=== PATIENT | male | born 1975 | race American Indian/Alaskan Native ===

== ENCOUNTER 2021-04-25 08:50 | Emergency (ER) | payer BC ==
--- NOTE | 2021-04-25 11:33 | Emergency Department Report ---
HPI - General Chief Complaint: Skin/Abscess/Foreign Body Time Seen by Provider: 04/25/21 10:48 - HPI HPI: 45-year-old male with no significant past medical history other than remote history of skin abscesses presents complaining of fever and chills for the past 2-days as well as concerns about possible right gluteal abscess. The patient states that he has had a swelling in the right side of his gluteal region for the past 4 years. However 2 weeks ago the area became inflamed, swollen and painful. 1 week ago the area ruptured and produced purulent material, after which the symptoms have gradually resolved. However, 2 days ago he developed subjective fevers and chills. He denies any significant pain in the area that ruptured. He took ibuprofen for the chills yesterday. He denies any other associated symptoms including vision change, headache, chest pain, cough, shortness of breath, rectal pain, melena, hematochezia, tenesmus, rectal discharge, nausea/vomiting, focal weakness, sensory changes, or any other complaints. He is fully vaccinated against COVID-19 and has received a booster. Denies history or recent IVDU ED Past Medical Hx - Past Medical History Previous Medical History?: No - Surgical History Past Surgical History?: Yes Additional Surgical History: lipoma removal - Medications Home Medications: Home Medications Medication Instructions Recorded Confirmed Last Taken Type Sulfamethoxazole/Trimethoprim 1 tab PO BID #20 04/25/21 Unknown Rx [Bactrim DS TAB] cephALEXin [Keflex] 500 mg PO TID #30 cap 04/25/21 Unknown Rx ED Review of Systems ROS: Stated complaint: MEDICAL CLERANCE Other details as noted in HPI Comment: All other systems reviewed and negative Constitutional: chills, fever Eyes: denies: eye pain, vision change ENT: denies: throat pain, congestion Respiratory: denies: cough, shortness of breath Cardiovascular: denies: chest pain, palpitations Gastrointestinal: denies: abdominal pain, nausea, vomiting, diarrhea, constipation, melena, hematochezia Genitourinary: denies: dysuria, frequency Musculoskeletal: denies: back pain, arthralgia Skin: other (perirectal pain). denies: pruritus Neurological: denies: headache, weakness, numbness Hematological/Lymphatic: denies: easy bleeding Physical Exam - Physical Exam Vital Signs: Vital Signs 04/25/21 10:12 Temperature 102.0 F H Pulse Rate 98 H Respiratory 16 Rate Blood Pressure 134/48 O2 Sat by Pulse 99 Oximetry Physical Exam: GENERAL: Well developed and well nourished. No acute distress HEAD: Normocephalic. No obvious signs of trauma. ENT: Dry mucous membranes. EYES: Extraocular movements are intact. Pupils are equal round and reactive to light bilaterally NECK: Supple. Full ROM is intact. Trachea is midline. LUNGS: Nonlabored breathing. Equal chest rise bilaterally. Clear to auscultation bilaterally. CARDIOVASCULAR: Regular rate and rhythm. No murmurs or rubs. VASCULAR: Cap refill < 2 seconds ABDOMEN: Abdomen is soft and nondistended. There is no significant tenderness, guarding or rebound. RECTAL: In the right inferior perirectal region on the gluteal cleft is an approximately 2 cm area of induration which is nontender. There is no fluctuance. There is no active drainage. There is no surrounding erythema. There is no tenderness, swelling, or erythema of the perineum. There is no tenderness on DAHLIA. SKIN: Skin is warm and dry NEURO: Patient is awake, alert, and oriented. 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 No focal deficits. Normal motor and sensory exam throughout. Normal speech. MUSCULOSKELETAL: No obvious deformities. No significant tenderness. Normal ROM throughout. BACK/SPINE: No midline tenderness or step-offs of the C/T/L spine. No costovertebral angle tenderness. ED Course Vital Signs 04/25/21 10:12 Temperature 102.0 F H Pulse Rate 98 H Respiratory 16 Rate Blood Pressure 134/48 O2 Sat by Pulse 99 Oximetry ED Medical Decision Making - Medical Decision Making 45-year-old male presenting with 2 days of fever/chills which developed after a right perirectal abscess which has ruptured and gradually improved over the past 2 weeks. On initial assessment he is noted to have a fever of 102.0. Is a heart rate of 98 but otherwise his vital signs are within normal limits. On physical exam he has dry mucous membranes. Rectal examination reveals perirectal induration which is nontender without surrounding swelling, erythema, or fluctuance to suggest abscess. There is no active drainage. Normal DAHLIA. We discussed options and I advised that given he has normal vital signs and no signs of active perirectal abscess, we will prescribe 10 days of antibiotics and have him follow-up with general surgery. He will return to the emergency dep artment or to another doctor should his symptoms worsen or should he develop any other new health concerns. The patient expressed understanding and agreement with this plan of care Critical care attestation.: If time is entered above; I have spent that time in minutes in the direct care of this critically ill patient, excluding procedure time. ED Disposition Clinical Impression: Fever, Cellulitis, gluteal, right Disposition: HOME / SELF CARE / HOMELESS Is pt being admited?: No Condition: Stable Instructions: Cellulitis, Adult, Anorectal Abscess Additional Instructions: Please take all prescriptions as prescribed. You may take ibuprofen or Tylenol for any fevers. Return to the emergency department should you develop significantly worsening symptoms or new health concerns. Please follow-up with a general surgeon or colorectal surgeon. Prescriptions: Sulfamethoxazole/Trimethoprim [Bactrim DS TAB] 1 tab PO BID #20 cephALEXin [Keflex] 500 mg PO TID #30 cap Referrals: JOCY MOJICA MD [Staff Physician] - 7-10 days
[2021-04-25 12:03] VITALS: BP 105/59
== END 2021-04-25 12:00 | disposition home or self-care (01) ==
LOC: ED 08:50
DX: R50.9 Fever, unspecified (principal); L03.317 Cellulitis of buttock
CPT/HCPCS: 99282